=== PATIENT | male | born 1995 | race Caucasian/White ===

== ENCOUNTER 2019-08-12 08:32 | Emergency (ER) | payer BC ==
[~2019-08-12] VITALS: Ht 180.3 cm; Wt 90.7 kg
[2019-08-12 08:45] VITALS: Ht 180.3 cm; Wt 90.7 kg
[2019-08-12 09:41] LABS: BASOPHIL % 0.2 % (0-2); PLATELET COUNT 213 x10^3mcL (130-400)
[2019-08-12 10:42] LABS: CALCIUM 9.2 mg/dL (8.5-10.1); CARBON DIOXIDE 23.7 mmol/L (21-32); CHLORIDE SERUM 101 mmol/L (98-107); CREATININE SERUM 1.1 mg/dL (0.7-1.3); GFR1 > 60 mL/min; GLUCOSE SERUM 96 mg/dL (74-106); POTASSIUM SERUM 3.6 mmol/L (3.5-5.1); SODIUM SERUM 136 mmol/L (136-145)
[2019-08-12 10:46] LABS: ALBUMIN 4.4 g/dL (3.4-5.0); ALKALINE PHOSPHATASE 56 U/L (46-116); ALT/SGPT 23 U/L (16-63); AST/SGOT 10 U/L (15-37); BILIRUBIN TOTAL 2.64 mg/dL (0.20-1.00); LIPASE 148 IU/L (73-393); TOTAL PROTEIN, SERUM 7.9 g/dL (6.4-8.2)
[2019-08-12 11:40] VITALS: BP 124/62
[2019-08-12 12:39] LABS: AMPHETAMINE QUAL UR POSITIVE (See below)
== END 2019-08-12 11:40 | disposition home or self-care (01) ==
LOC: ED 08:32
PROVIDERS: Specialist
DX: J02.9 Acute pharyngitis, unspecified (principal)
CPT/HCPCS: J1885; Q0092

== ENCOUNTER 2019-08-14 10:22 | Emergency (ER) | payer BC, SELFPAY ==
[~2019-08-14] VITALS: Ht 180.3 cm; Wt 90.7 kg
[2019-08-14 13:34] VITALS: BP 152/46; Ht 180.3 cm; Wt 90.7 kg
== END 2019-08-14 13:48 | disposition home or self-care (01) ==
LOC: ED 10:22
DX: R05 Cough (principal); R07.89 Other chest pain; Z20.828 Contact with and (suspected) exposure to other viral communicable diseases
CPT/HCPCS: U0003-CS